=== PATIENT | female | born 1985 | race Caucasian/White ===

== ENCOUNTER 2017-10-15 06:40 | Emergency (ER) | payer SELFPAY ==
[~2017-10-15] VITALS: Ht 162.6 cm; Wt 94.5 kg
[2017-10-15 06:50] VITALS: Ht 162.6 cm; Wt 94.5 kg
[2017-10-15] MEDS ORDERED: PRENAVITE1 TAB PO (06:52)
[2017-10-15 07:19] LABS: BASOPHILS 0.2 % (0-2); EOSINOPHILS 1.3 % (0-7); HEMATOCRIT 39.3 % (36.0-48.0); IMMATURE GRANULOCYTES 0.2 % (0-5); LYMPHOCYTES 27.3 % (15-50); MCH 28.2 pg (26.0-34.0); MCHC 33.1 g/dL (31.0-37.0); MCV 85.2 fL (80.0-100.0); PLATELET COUNT 297 10x3/uL (130-400); RBC 4.61 10x6/uL (4.00-5.40); RDW 15.8 % (11.5-14.5); WBC 8.2 10x3/uL (4.8-10.8)
[2017-10-15 07:36] LABS: APPEARANCE HAZY (CLEAR); BACTERIA MODERATE /hpf (NONE SEEN); BILIRUBIN NEGATIVE (NEGATIVE); COLOR YELLOW (YELLOW); GLUCOSE NEGATIVE (NEGATIVE); KETONE NEGATIVE (NEGATIVE); NITRITE NEGATIVE (NEGATIVE); PROTEIN NEGATIVE (NEGATIVE); UROBILINOGEN NORMAL (NORMAL)
[2017-10-15 07:53] LABS: ALBUMIN 3.5 g/dL (3.4-5.0); ALKALINE PHOSPHATASE 58 U/L (46-116); ALT (SGPT) 18 U/L (10-68); BILIRUBIN - TOTAL 0.38 mg/dL (0.2-1.3); CALC OSMOLALITY 273 mosm/kg (275-300); CALCIUM 9.1 mg/dL (8.5-10.1); CARBON DIOXIDE 22.1 mmol/L (21.0-32.0); CHLORIDE - SERUM 105 mmol/L (98-107); CREATININE - SERUM 0.5 mg/dL (0.6-1.3); GLUCOSE 92 mg/dL (74-106); POTASSIUM - SERUM 4.2 mmol/L (3.5-5.1); PROTEIN - SERUM 7.3 g/dL (6.4-8.2); SODIUM 138 mmol/L (136-145); UREA NITROGEN 6 mg/dL (7-18); eGFR NON AFRICAN AMERICAN > 90 mL/min (90-120)
[2017-10-15 08:13] LABS: HCG - QUANTITATIVE (MATERNAL) 72244 mIU/mL
[2017-10-15 09:48] VITALS: BP 124/86
== END 2017-10-15 09:45 | disposition home or self-care (01) ==
LOC: D.ER 06:40 → EDBD 06:40 → D.ER 09:45
PROVIDERS: Family Medicine
DX: O20.0 Threatened abortion (principal); Z3A.08 8 weeks gestation of pregnancy

== ENCOUNTER 2017-12-03 17:29 | Emergency (ER) | payer MEDICAID ==
[~2017-12-03] VITALS: Ht 162.6 cm; Wt 95.0 kg
[~2017-12-03 17:29] MED LIST: PRENAVITE1 TAB PO
[2017-12-03 17:40] VITALS: Ht 162.6 cm; Wt 95.0 kg
[2017-12-03 18:30] LABS: APPEARANCE CLEAR (CLEAR); BILIRUBIN NEGATIVE (NEGATIVE); COLOR STRAW (YELLOW); GLUCOSE NEGATIVE (NEGATIVE); KETONE NEGATIVE (NEGATIVE); NITRITE NEGATIVE (NEGATIVE); PROTEIN NEGATIVE (NEGATIVE); UROBILINOGEN NORMAL (NORMAL)
[2017-12-03 18:31] LABS: BASOPHILS 0.2 % (0-2); HEMATOCRIT 38.6 % (36.0-48.0); IMMATURE GRANULOCYTES 0.2 % (0-5); LYMPHOCYTES 23.3 % (15-50); MCH 29.4 pg (26.0-34.0); MCHC 33.7 g/dL (31.0-37.0); MCV 87.3 fL (80.0-100.0); MEAN PLATELET VOLUME 10.6 fL (7.4-10.4); MONOCYTES 7.4 % (2-11); NEUTROPHILS 67.9 % (40-80); RBC 4.42 10x6/uL (4.00-5.40); RDW 14.3 % (11.5-14.5); WBC 10.6 10x3/uL (4.8-10.8)
[2017-12-03 18:33] LABS: PLATELET COUNT 216 10x3/uL (130-400)
[2017-12-03 18:48] LABS: ALKALINE PHOSPHATASE 45 U/L (46-116); ALT (SGPT) 21 U/L (10-68); BILIRUBIN - TOTAL 0.15 mg/dL (0.2-1.3); CALC OSMOLALITY 268 mosm/kg (275-300); CALCIUM 8.5 mg/dL (8.5-10.1); CARBON DIOXIDE 22.5 mmol/L (21.0-32.0); CHLORIDE - SERUM 106 mmol/L (98-107); CREATININE - SERUM 0.5 mg/dL (0.6-1.3); GLUCOSE 75 mg/dL (74-106); POTASSIUM - SERUM 3.4 mmol/L (3.5-5.1); SODIUM 136 mmol/L (136-145); UREA NITROGEN 7 mg/dL (7-18); eGFR NON AFRICAN AMERICAN > 90 mL/min (90-120)
[2017-12-03 19:09] LABS: HCG - QUANTITATIVE (MATERNAL) 34115 mIU/mL
[2017-12-03 20:48] VITALS: BP 123/69
== END 2017-12-03 20:50 | disposition home or self-care (01) ==
LOC: D.ER 17:29
PROVIDERS: Emergency Medicine
DX: O44.02 Complete placenta previa NOS or without hemorrhage, second trimester (principal); Z3A.15 15 weeks gestation of pregnancy

== ENCOUNTER → 2018-04-20 04:22 | Outpatient (CLI) | payer MEDICAID ==
[2017-12-03 17:40] VITALS: BMI 35.9
[2018-04-20 05:38] LABS: APPEARANCE HAZY (CLEAR); BILIRUBIN NEGATIVE (NEGATIVE); COLOR YELLOW (YELLOW); GLUCOSE NEGATIVE (NEGATIVE); KETONE NEGATIVE (NEGATIVE); NITRITE NEGATIVE (NEGATIVE); PH 6.5 (5.0-6.0); PROTEIN NEGATIVE (NEGATIVE); SPECIFIC GRAVITY 1.015 (1.005-1.020); UROBILINOGEN NORMAL (NORMAL)
[2018-04-20 05:51] LABS: BACTERIA MANY /hpf (NONE SEEN); EPITHELIAL CELLS 0-5 /hpf (0-5); RED CELLS - URINE 0-5 /hpf (0-5)
== END | disposition home or self-care (01) ==
LOC: D.LDO 04:22
PROVIDERS: Obstetrics & Gynecology
DX: O26.893 Other specified pregnancy related conditions, third trimester (principal); Z3A.35 35 weeks gestation of pregnancy; R10.30 Lower abdominal pain, unspecified

== ENCOUNTER 2018-05-08 05:56 | Inpatient (IN) | payer MEDICAID ==
[~2018-05-08] VITALS: Ht 162.6 cm; Wt 102.5 kg
[2018-05-08 06:36] LABS: APPEARANCE CLEAR (CLEAR); COLOR YELLOW (YELLOW); SPECIFIC GRAVITY 1.015 (1.005-1.020)
[2018-05-08 06:37] LABS: BILIRUBIN NEGATIVE (NEGATIVE); GLUCOSE NEGATIVE (NEGATIVE); KETONE NEGATIVE (NEGATIVE); NITRITE NEGATIVE (NEGATIVE); PROTEIN NEGATIVE (NEGATIVE); UROBILINOGEN NORMAL (NORMAL)
[2018-05-08 10:00] LABS: HEMATOCRIT 38.2 % (36.0-48.0); HEMOGLOBIN 12.8 g/dL (12-16); MCH 29.3 pg (26.0-34.0); MCHC 33.5 g/dL (31.0-37.0); MCV 87.4 fL (80.0-100.0); MEAN PLATELET VOLUME 10.6 fL (7.4-10.4); RBC 4.37 10x6/uL (4.00-5.40)
--- NOTE | 2018-05-08 17:37 | NUR ---
PT C/O ABDOMINAL CRAMPING OF "5" ON 0-10 PAIN SCALE. NORCO 5/325 GIVEN PO ORDERED. PT INSTRUCTED ON MED. VERBALIZES UNDERSTANDING. PT STATES HAS VOIDED SECOND TIME.
[2018-05-08 17:38] VITALS: BP 113/69; BMI 38.9
--- NOTE | 2018-05-08 19:00 | NUR ---
REPORT RECEIVED FROM SUDHA LEE. NO REPORTS OF DISTRESS RECEIVED.
[2018-05-08 19:28] VITALS: BP 116/72
--- NOTE | 2018-05-08 19:28 | NUR ---
PATIENT SITTING UP IN BED. FAMILY AT BEDSIDE. ASSESSMENT AND VITAL SIGNS DONE. PATIENT DENIES ANY PAIN AT THIS TIME. RETAIL ADVISOR PRESENT IN ROOM. RESPIRATIONS AT EASE. LUNG SOUNDS CLEAR IN ALL COONEY. HEART REGULAR RATE AND RHYTHM. ABDOMEN SOFT AND NONTENDER. BOWEL SOUNDS PRESENT IN ALL QUADRANTS. FUNDUS FIRM AND AT UMBILICUS. LOCHIA RUBRA AND SMALL. +1 EDEMA NOTED TO BLE. PATIENT DENIES ANY NEEDS AT THIS TIME. BED IN LOWEST POSITION, SIDE RAILS UP X 2, C/L AND WATER WITHIN REACH.
--- NOTE | 2018-05-08 21:00 | NUR ---
PATIENT SITTING UP IN BED AT THIS TIME. SON AT BEDSIDE. PATIENT UP TO BR TO VOID X 1. DENIES ANY DIFFICULTY. DENIES PAIN. DENIES ANY NEEDS OR CONCERNS. BED IN LOWEST POSTION, SIDE RAILS UP X 2, C/L AND WATER WITHIN REACH.
--- NOTE | 2018-05-08 23:00 | NUR ---
PATIENT LYING IN BED WITH EYES CLOSED. SON AT BEDSIDE. NO SIGNS OF DISTRESS NOTED. BED IN LOWEST POSTION, SIDE RAILS UP X 2, C/L AND WATER WITHIN REACH.
--- NOTE | 2018-05-09 01:00 | NUR ---
PATIENT LYING QUIETLY IN BED WITH EYES CLOSED. NO SIGNS OF DISTRESS NOTED. BED IN LOWEST POSITION, SIDE RAILS UP X 2, C/L AND WATER WITHIN REACH.
--- NOTE | 2018-05-09 03:00 | NUR ---
PATIENT LYING QUIETLY IN BED WITH EYES CLOSED. RESPIRATIONS AT EASE. NO SIGNS OF DISTRESS NOTED. BED IN LOWEST POSTION, SIDE RAILS UP X 2, C/L AND WATER WITHIN REACH.
[2018-05-09 05:00] VITALS: BP 101/53
--- NOTE | 2018-05-09 05:03 | NUR ---
PATIENT LYING IN BED WITH EYES CLOSED. EASILY AROUSED. VITAL SIGNS DONE AT THIS TIME. NO SIGNS OF DISTRESS. BED IN LOWEST POSITION, SIDE RAIL UP X 2, C/L AND WATER WITHIN REACH.
--- NOTE | 2018-05-09 06:23 | NUR ---
PATIENT LYING IN BED WITH EYES CLOSED. NO SIGNS OF DISTRESS NOTED. BED IN LOWEST POSITION, SIDE RAILS UP X 2, C/L AND WATER WITHIN REACH.
[2018-05-09 06:55] LABS: BASOPHILS 0.2 % (0-2); EOSINOPHILS 1.9 % (0-7); HEMATOCRIT 33.6 % (36.0-48.0); HEMOGLOBIN 10.9 g/dL (12-16); IMMATURE GRANULOCYTES 0.2 % (0-5); LYMPHOCYTES 20.9 % (15-50); MCH 28.5 pg (26.0-34.0); MCHC 32.4 g/dL (31.0-37.0); MEAN PLATELET VOLUME 10.5 fL (7.4-10.4); MONOCYTES 7.5 % (2-11); NEUTROPHILS 69.3 % (40-80); PLATELET COUNT 236 10x3/uL (130-400); RBC 3.82 10x6/uL (4.00-5.40); RDW 13.9 % (11.5-14.5); WBC 12.8 10x3/uL (4.8-10.8)
[2018-05-09 07:37] VITALS: Ht 162.6 cm; Wt 102.5 kg
[2018-05-09 07:53] VITALS: BP 107/55
--- NOTE | 2018-05-09 07:55 | NUR ---
assessment done. co pain- rates 7 on scale of 0-10. co cramping- med given.
[2018-05-09 08:20] LABS: RAPID PLASMA REAGIN Non Reactive (Non Reactive)
--- NOTE | 2018-05-09 10:10 | NUR ---
Theresa Carrasco 05/09/18 LE@ 9:35 S: Patient son states his mother says is going fine baby is just sleepy now. She doesn't have an pain when latching infant. Thinks baby is going good with nursing. Denies questions or concerns. O: Patient sitting up in bed holding infant, son at bedside. Congratulated on delivery and praised for . Explained takes time, practice, and patience. Explained normal feeding patterns for a breastfed including should eat 8-12 times in 24 hours. This will help with establishing your milk supply. Explained breastmilk composition, feeding cues, benefits of skin to skin, positions, and how to verify latch is correct. Asked if any nipple pain with ? Encouraged to practice responsive feeding and ask for help as needed with . Asked if any questions or concerns? A: Patient doesn't speak Yakut, her son in room and translating communication. Patient appears confident with due to know concerns or questions expressed. P: Continue to support during hospital visit. Yvette Griffin, CLC
--- NOTE | 2018-05-09 10:15 | NUR ---
to room. pt sitting up holding . states that pain is better (per son spanish medical interpreter) rates pain down to 2 on scale of 0-10. pt smiling denies needs.
--- NOTE | 2018-05-09 11:00 | NUR ---
pt requesting linens changed- infant voided on sheet. linens changed- pt up and about in room. pt denies wanting to shower at this time.
[2018-05-09 12:59] VITALS: BP 99/58
--- NOTE | 2018-05-09 13:01 | NUR ---
sitting up in bed. denies pain. waiting for dietary to bring lunch.
--- NOTE | 2018-05-09 15:00 | NUR ---
up and about in room- denies needs.
--- NOTE | 2018-05-09 16:28 | NUR ---
sitting up in bed- in arms. denies needs- denies pain.
--- NOTE | 2018-05-09 17:15 | NUR ---
pt does not like dinner tray-reordered meal. pt denies other needs.
[2018-05-09 19:07] VITALS: BP 108/58
--- NOTE | 2018-05-09 19:13 | NUR ---
PM ASSESSMENT COMPLETED WITH ASSISTANCE PT SON WHO ACTS INTERPRETOR, PT C/O PAIN, PRN MEDS GIVEN ORDERED BY LYSSA BROWN, HEART RRR, LUNGS CTAB, BOWEL SOUNDS ACTIVE X 4 QUADRANTS, FUNDUS FIRM AT U/1-2 AND MIDLINE, LOCHIA RUBRA AND MODERATE AMOUNT, VOIDING WITHOUT DIFFICULTY, REPORTS SELF PERFORMING PERICARE WITH BETADINE, SOLIS FREELY, NEGATIVE CYNTHIA'S SIGN B LE, PEDAL PULSES STRONG AND EQUAL 2+/= B. TOLERATING PO. CALL LIGHT IN EASY REACH, FAMILY PRESENT IN ROOM, CONTINUE TO MONITOR.
--- NOTE | 2018-05-09 20:15 | NUR ---
PAIN REASSESSMENT COMPLETED, PT RATES PAIN 2 OF 10, LEMON TOHONO [place] SODA PROVIDED UPON REQUEST, IN ARMS AND PT SMILING, CALL LIGHT IN EASY REACH OF PT AND SON AT BS FOR INTERPRETATION.
--- NOTE | 2018-05-09 21:21 | NUR ---
HOURLY ROUNDS COMPLETED, PT RESTING WITH EYES CLOSED, HOB ELEVATED 30 DEGREES, RESP EVEN AND UNLABORED, CONTINUE TO MONITOR.
--- NOTE | 2018-05-09 22:44 | NUR ---
ROUNDS COMPLETED, PT RESTING WITH EYES CLOSED, RESP EVEN AND UNLABORED, SUPINE WITH HOB ELEVATED 30 DEGREES, SIDE RAILS UP X2, BED IN LOW POSITION, NO S/SX DISTRESS OR PAIN NOTED. CALL LIGHT REMAINS WITHIN EASY REACH. CONTINUE TO MONITOR.
--- NOTE | 2018-05-10 00:34 | NUR ---
ROUNDS COMPLETED, NAD NOTED, RESP EVEN AND UNLABORED, EYES CLOSED, SIDE RAILS UP X2, BED IN LOW POSITION, CALL LIGHT IN EASY REACH. CONTINUE TO MONITOR.
--- NOTE | 2018-05-10 02:20 | NUR ---
ROUNDS COMPLETED, NAD, PT EYES CLOSED, RESP EVEN AND UNLABORED, CONTINUE TO MONITOR.
--- NOTE | 2018-05-10 04:10 | NUR ---
ROUNDS COMPLETED, PT RESTING WITH HOB ELEVATED AT 30 DEGREES, RESP EVEN AND UNLABORED, NAD NOTED. CONTINUE TO MONITOR.
--- NOTE | 2018-05-10 07:15 | NUR ---
PT SITTING UP IN BED CHANGING INFANT'S BLANKETS. DENIES NEEDS AT THIS TIME. WILL RETURN FOR SHIFT ASSESSMENT.
[2018-05-10 08:02] VITALS: BP 104/61
--- NOTE | 2018-05-10 08:02 | NUR ---
THIS RN TO ROOM FOR SHIFT ASSESSMENT. PT LYING IN BED ON LEFT SIDE, ALERTS THIS RN ENTERS ROOM. PT RATES PAIN 5/10 IN ABD, CRAMPING. SHIFT ASSESSMENT COMPLETED, VSS, SEE FLOWSHEET FOR DOC. PT REQUESTING SAME PAIN MEDS SHE HAD LAST NIGHT FOR CRAMPING. WILL CHECK EMAR AND ADMIN ORDERED. RIGHT HAND PIV REMOVED NO LONGER INDICATED. CATH INTACT, PRESSURE HELD AND BANDAID APPLIED. PT'S SON AT BEDSIDE. PT HOLDING INFANT AT THIS TIME.
--- NOTE | 2018-05-10 09:45 | NUR ---
THIS RN TO ROOM FOR PT CHECK. PT LYING IN BED ON RIGHT SIDE. PT DENIES ANY NEEDS, REPORTS IMPROVEMENT IN PAIN, RATES 2/10 AT THIS TIME. WILL CONT TO MONITOR.
--- NOTE | 2018-05-10 10:07 | NUR ---
Theresa Carrasco@ 9:10 S: Patient son states his mother says is going good. She doesn't have any questions about . O: Patient sitting up in bed holding infant. Son at bedside. Asked how are things going with can I help in any way? Enocuraged to continue to nurse infant on demand to help with establishing her milk supply. A: Patient son in room interpreting. Patient has no concerns or questions about . P: Continue to promote during hospital visit. Yvette Griffin, [facility]
--- NOTE | 2018-05-10 10:50 | NUR ---
PT'S SON TO DESK REQUESTING BLANKETS FOR . THIS RN TO ROOM WITH BLANKETS. PT STANDING AT BEDSIDE CHANGING INFANT'S BLANKETS, SON STATES INFANT PEED ON THEM. PT IS SMILING, DENIES PAIN OR ANY OTHER NEEDS AT THIS TIME. WILL CONT TO MONITOR.
--- NOTE | 2018-05-10 12:00 | NUR ---
PT IN ROOM DRESSING, PACKING BAGS FOR DISCHARGE. PT DENIES NEEDS AT THIS TIME. WILL CONT TO MONITOR.
--- NOTE | 2018-05-10 13:30 | NUR ---
PT GIVEN DISCHARGE INSTRUCTIONS AND WRITTEN PRESCRIPTIONS FOR PAIN CONTROL POST D/C TO HOME. PT VERBALIZES UNDERSTANDING AND DENIES QUESTIONS. SIGNS CHART COPIES.
--- NOTE | 2018-05-10 13:45 | NUR ---
PT CALLS OUT HEAD CUSTODIAN LIGHT STATING SHE IS ALL PACKED UP AND IS BUCKLED IN CARSEAT, READY FOR W/C OUT.
--- NOTE | 2018-05-10 13:50 | NUR ---
PT OFF UNIT VIA W/C TO PRIVATE VEHICLE FOR D/C TO HOME. PT ACCOMPANIED BY FAMILY MEMBER TO DRIVE HER, SON, AND IN CARSEAT. PT HAS RX AND INSTRUCTIONS IN HAND.
== END 2018-05-10 13:50 | disposition home or self-care (01) | DRG 807 ==
LOC: D.LDO 05:56 → D.LD 08:16
PROVIDERS: Obstetrics & Gynecology; ADMIT Obstetrics & Gynecology
PROC: 10907ZC Drainage of Amniotic Fluid, Therapeutic from Products of Conception, Via Natural or Artificial Opening (ICD-10-PCS; 2018-05-08)
PROC: 10E0XZZ Delivery of Products of Conception, External Approach (ICD-10-PCS; principal; 2018-05-09)
DX: O99.824 Streptococcus B carrier state complicating childbirth (principal); Z37.0 Single live birth; Z3A.38 38 weeks gestation of pregnancy; O72.1 Other immediate postpartum hemorrhage